=== PATIENT | female | born 1950 | race Caucasian/White ===

== ENCOUNTER 2018-06-10 07:59 | Inpatient (IN) | payer OTHER ==
[2018-06-10] MEDS ORDERED: METHYLPREDNISOLONE 125 MG INJ ONE (08:30)
[2018-06-10] MEDS ORDERED: ACETAMINOPHEN 500 MG TAB ONE (08:30)
[2018-06-10] MEDS ORDERED: Levofloxacin 750mg IV 750 MG/150 ML BAG IV ONE (08:30)
[2018-06-10] MEDS ORDERED: ALBUTEROL 2.5 MG/3 ML NEB SOL ONE (08:30)
[2018-06-10] MEDS ORDERED: NA CHLORIDE 0.9% 1,000 ML ONE (08:30)
[2018-06-10 08:58] LABS: Absolute Lymphocytes (CBC) 0.4 K/uL (0.7-4.9); Absolute Monocytes 0.6 K/uL (0.1-1.3); Absolute Neutrophil 5.1 K/uL (1.8-8.0); Basophils % 0.3 % (0-1.3); Eosinophils % 0.8 % (0-4.4); Hematocrit 42.9 % (36.0-45.0); Lymphocytes % 5.7 % (15.3-44.8); RBC Red Blood Cell Count 4.41 M/uL (3.86-4.86)
[2018-06-10 09:02] LABS: Protime INR 1.05
[2018-06-10 09:15] LABS: ALT/SGPT 32 U/L (12-78); AST/SGOT 42 U/L (15-37); Albumin 3.5 g/dL (3.4-5.0); Alkaline Phosphatase 95 U/L (45-117); BUN Blood Urea Nitrogen 7 mg/dL (7-18); Bicarbonate 26 mmol/L (21-32); Bilirubin Direct 0.3 mg/dL (0-0.2); Bilirubin Total 0.7 mg/dL (0.2-1.0); Creatine Phosphokinase 876 U/L (26-192); Glucose Level 108 mg/dL (74-106); Lipase 60 U/L (73-393); Potassium 3.9 mmol/L (3.5-5.1); Protein, Total 6.9 g/dL (6.4-8.2); Sodium Level 135 mmol/L (136-145); Troponin (Emerg Dept Use Only) < 0.02 ng/mL (0.0-0.045)
--- NOTE | 2018-06-10 09:29 | RAD REPORT ---
EXAM DESCRIPTION: RAD - Chest Single View - 06/10/2018 8:45 am CLINICAL HISTORY: Shortness of breath, productive cough COMPARISON: October 2016February 2012 TECHNIQUE: AP portable chest image was obtained 0831 hours . FINDINGS: No focal mass or consolidation. Emphysema changes are present in each upper lung field. In terstitial markings are prominent in the lower lung campbell, worse on the right. Heart and vasculature are normal. No measurable pleural effusion and no pneumothorax. No acute bony abnormality seen. No a cute aortic findings suspected. IMPRESSION: Suspected interstitial pneumonia lower right lung field and possibly at the lateral left base. No dense mass or consolidation. Heart and vascular findings do not support CHF or volume overload. Emphysematous changes in the upper lung campbell. Correlation is needed with any COPD history.
--- NOTE | 2018-06-10 09:43 | EDPHYS ---
Physician Documentation [facility] Name: Lynda Covington Age: 68 yrs Sex: Female : 1950 Arrival Date: 06/10/2018 Time: 08:02 Bed 8 Private MD: Phoenix Ayala ED Physician Josh Redding HPI: 06/10 08:18 This 68 yrs old Female presents to ER via Wheelchair with complaints of jr8 Breathing Difficulty. 08:18 The patient has shortness of breath at rest. Onset: The symptoms/episode began/occurred jr8 gradually, 4 day(s) ago, and became worse and became persistent. Duration: The symptoms are continuous. The patient's shortness of breath is aggravated by coughing, is alleviated by nothing. Associated signs and symptoms: Pertinent positives: fever. Severity of symptoms: At their worst the symptoms were moderate in the emergency department the symptoms are unchanged. The patient has not experienced similar symptoms in the past. The patient has been recently seen by a physician:. saw PCP the other day and had flu swab done which was negative. Was given Tamiflu. Now running fever and having worsening of cough and shortness of breath . Historical: - Allergies: 08:08 Phenergan; aa5 - PMHx: 08:08 Diverticulitis; Hypertension; Hypothyroidism; Pancreatitis; aa5 - PSHx: 08:08 Cholecystectomy; Hysterectomy; aa5 - Immunization history:: Flu vaccine is up to date. - Social history:: Smoking status: Patient/guardian denies using tobacco. - Ebola Screening: : No symptoms or risks identified at this time. ROS: 08:18 Eyes: Negative for injury, pain, redness, and discharge, ENT: Negative for injury, jr8 pain, and discharge, Neck: Negative for injury, pain, and swelling, Cardiovascular: Negative for chest pain, palpitations, and edema, Abdomen/GI: Negative for abdominal pain, nausea, vomiting, diarrhea, and constipation, Back: Negative for injury and pain, MS/Extremity: Negative for injury and deformity, Skin: Negative for injury, rash, and discoloration, Neuro: Negative for headache, weakness, numbness, tingling, and seizure. 08:18 Constitutional: Positive for fever. 08:18 Respiratory: Positive for cough, dyspnea on exertion, shortness of breath, wheezing. Exam: 08:18 Head/Face: Normocephalic, atraumatic. Eyes: Pupils equal round and reactive to light, jr8 extra-ocular motions intact. Lids and lashes normal. Conjunctiva and sclera are non-icteric and not injected. Cornea within normal limits. Periorbital areas with no swelling, redness, or edema. ENT: Nares patent. No nasal discharge, no septal abnormalities noted. Tympanic membranes are normal and external auditory canals are clear. Oropharynx with no redness, swelling, or masses, exudates, or evidence of obstruction, uvula midline. Mucous membranes moist. Neck: Trachea midline, no thyromegaly or masses palpated, and no cervical lymphadenopathy. Supple, full range of motion without nuchal rigidity, or vertebral point tenderness. No Meningismus. Cardiovascular: Regular rate and rhythm with a normal S1 and S2. No gallops, murmurs, or rubs. Normal PMI, no JVD. No pulse deficits. Abdomen/GI: Soft, non-tender, with normal bowel sounds. No distension or tympany. No guarding or rebound. No evidence of tenderness throughout. Back: No spinal tenderness. No costovertebral tenderness. Full range of motion. Skin: Warm, dry with normal turgor. Normal color with no rashes, no lesions, and no evidence of cellulitis. MS/ Extremity: Pulses equal, no cyanosis. Neurovascular intact. Full, normal range of motion. Neuro: Awake and alert, GCS 15, oriented to person, place, time, and situation. Cranial nerves II-XII grossly intact. Motor strength 5/5 in all extremities. Sensory grossly intact. Cerebellar exam normal. Normal gait. 08:18 Respiratory: mild respiratory distress is noted, Respirations: labored breathing, tachypnea, Breath sounds: decreased breath sounds, that are moderate, are heard in the left posterior lower lobe, right posterior middle lobe and right posterior lower lobe, wheezing: expiratory that is moderate, is heard diffusely. Vital Signs: 08:08 BP 134 / 91; Pulse 93; Resp 30; Temp 100.2(O); Pulse Ox 91% on R/A; Weight 86.64 kg aa5 (R); Height 5 ft. 3 in. (160.02 cm) (R); 09:00 BP 134 / 86; Pulse 94; Resp 28; Pulse Ox 97% on 2 lpm NC; ph 10:00 BP 133 / 83; Pulse 93; Resp 28; Pulse Ox 98% on 2 lpm NC; ph 11:02 BP 141 / 80; Pulse 95; Resp 26; Pulse Ox 98% on 2 lpm NC; ph 08:08 Body Mass Index 33.83 (86.64 kg, 160.02 cm) aa5 MDM: 08:10 Patient medically screened. [facility] 09:41 Data reviewed: vital signs, nurses notes, lab test result(s), EKG, radiologic studies, [facility] plain films. Data interpreted: Pulse oximetry: on room air is 91 %. Interpretation: borderline. Counseling: I had a detailed discussion with the patient and/or guardian regarding: the historical points, exam findings, and any diagnostic results supporting the discharge/admit diagnosis, lab results, radiology results, the need for further work-up and treatment in the hospital. 06/10 08:11 Order name: Basic Metabolic Panel; Complete Time: 06/10 08:11 Order name: Blood Culture Adult (2) [facility] 06/10 08:11 Order name: CBC with Diff; Complete Time: 06/10 08:11 Order name: Ckmb; Complete Time: 06/10 08:11 Order name: CPK; Complete Time: 06/10 08:11 Order name: Lactate; Complete Time: 06/10 08:11 Order name: LFT's; Complete Time: 06/10 08:11 Order name: Lipase; Complete Time: 06/10 08:11 Order name: Procalcitonin; Complete Time: 06/10 08:11 Order name: Protime (+inr); Complete Time: 06/10 08:11 Order name: Ptt, Activated; Complete Time: 06/10 08:11 Order name: Troponin (emerg Dept Use Only); Complete Time: 06/10 08:11 Order name: Urine Microscopic Only [facility] 06/10 08:12 Order name: Influenza Screen (a \T\ B); Complete Time: 06/10 08:11 Order name: Chest Single View XRAY; Complete Time: 09:29 06/10 08:11 Order name: Accucheck; Complete Time: 08:33 06/10 08:11 Order name: Cardiac monitoring; Complete Time: 08:06/10 08:11 Order name: EKG - Nurse/Tech; Complete Time: 08:33 06/10 08:11 Order name: IV Saline Lock - Large Bore; Complete Time: 08:56 06/10 08:11 Order name: Labs collected and sent; Complete Time: 08:56 06/10 08:11 Order name: O2 Per Protocol; Complete Time: 08:06/10 08:11 Order name: O2 Sat Monitoring; Complete Time: 08: Administered Medications: 08:35 Drug: Acetaminophen 1000 mg Route: PO; ph 08:35 Drug: Albuterol 2.5 mg Route: Inhalation; ph 08:40 Drug: SOLU-Medrol 125 mg Route: IVP; Site: left antecubital; ph 10:16 Follow up: Response: No adverse reaction ph 08:45 Drug: NS 0.9% (30 ml/kg) 30 ml/kg Route: IV; Rate: bolus; Site: left antecubital; ph 10:15 Follow up: Response: No adverse reaction; IV Status: Completed infusion; IV Intake: ph 1000ml 08:56 Drug: Albuterol 2.5 mg Route: Inhalation; ph 09:15 Drug: Albuterol 2.5 mg Route: Inhalation; ph 09:54 Drug: LevaQUIN 750 mg Volume: 150 ml; Route: IVPB; Infused Over: 90 mins; Site: left ph antecubital; 11:17 Follow up: Response: No adverse reaction; IV Status: Completed infusion ph 11:17 Drug: TORadol 30 mg Route: IVP; Site: left antecubital; ph 12:38 Follow up: Response: No adverse reaction sg 12:00 Drug: Tussionex Pennkinetic ER 5 ml Route: PO; ph 12:30 Follow up: Response: No adverse reaction; Marked relief of symptoms ph Disposition: 06/10/18 09:42 Hospitalization ordered by Brooke Stanford for Inpatient Admission. Preliminary diagnosis are Pneumonia due to other specified bacteria, Chronic obstructive pulmonary disease, unspecified. - Bed requested for Telemetry/MedSurg (Inpatient). - Status is Inpatient Admission. ph - Condition is Fair. - Problem is new. - Symptoms have improved. UTI on Admission? No Addendum: 06/18/2018 11:23 Co-signature as Attending Physician, Josh Redding MD I agree with the assessment and c costa plan of care. Signatures: Dispatcher [employer] Jessica Coughlin RN RN dw Anderson, Corey, MD MD cha Calderon, Audri, RN RN aa5 Talon Calderon PA PA jr8 Huyen Pedroza RN RN [facility], Jorge HARRINGTON sg Corrections: (The following items were deleted from the chart) 06/10 09:42 09:42 Hospitalization Ordered by Sandy Ayala MD for Inpatient Admission. Preliminary jr8 diagnosis is Pneumonia due to other specified bacteria. Bed requested for Telemetry/MedSurg (Inpatient). Status is Inpatient Admission. Condition is Fair. Problem is new. Symptoms have improved. UTI on Admission? No. jr8 09:44 09:42 06/10/2018 09:42 Hospitalization Ordered by Sandy Ayala MD for Inpatient jr8 Admission. Preliminary diagnosis is Pneumonia due to other specified bacteria; Chronic obstructive pulmonary disease, unspecified. Bed requested for Telemetry/MedSurg (Inpatient). Status is Inpatient Admission. Condition is Fair. Problem is new. Symptoms have improved. UTI on Admission? No. jr8 11:32 09:44 06/10/2018 09:42 Hospitalization Ordered by Brooke Stanford MD for Inpatient dw Admission. Preliminary diagnosis is Pneumonia due to other specified bacteria; Chronic obstructive pulmonary disease, unspecified. Bed requested for Telemetry/MedSurg (Inpatient). Status is Inpatient Admission. Condition is Fair. Problem is new. Symptoms have improved. UTI on Admission? No. jr8 13:07 11:32 06/10/2018 09:42 Hospitalization Ordered by Brooke Stanford MD for Inpatient ph Admission. Preliminary diagnosis is Pneumonia due to other specified bacteria; Chronic obstructive pulmonary disease, unspecified. Bed requested for Telemetry/MedSurg (Inpatient). Status is Inpatient Admission. Condition is Fair. Problem is new. Symptoms have improved. UTI on Admission? No. dw
--- NOTE | 2018-06-10 09:43 | ER ---
Nurse's Notes [facility] Name: Lynda Covington Age: 68 yrs Sex: Female : 1950 Arrival Date: 06/10/2018 Time: 08:02 Bed 8 Private MD: Phoenix Ayala Diagnosis: Pneumonia due to other specified bacteria;Chronic obstructive pulmonary disease, unspecified Presentation: 06/10 08:05 Presenting complaint: Patient states: SOB and productive cough. Pt reports being seen aa5 by doctor on Sunday and prescribed Tamiflu but Flu swab was negative. 08:05 Transition of care: patient was not received from another setting of care. Onset of aa5 symptoms was May 2018. Risk Assessment: Do you want to hurt yourself or someone else? Patient reports no desire to harm self or others. Care prior to arrival: None. 08:05 Method Of Arrival: Wheelchair aa5 08:05 Acuity: SILVINO 3 aa5 08:05 Initial Sepsis Screen: Does the patient meet any 2 criteria? RR > 20 per min. Does the ph patient have a suspected source of infection? Yes: Productive cough/pneumonia. Historical: - Allergies: 08:08 Phenergan; aa5 - PMHx: 08:08 Diverticulitis; Hypertension; Hypothyroidism; Pancreatitis; aa5 - PSHx: 08:08 Cholecystectomy; Hysterectomy; aa5 - Immunization history:: Flu vaccine is up to date. - Social history:: Smoking status: Patient/guardian denies using tobacco. - Ebola Screening: : No symptoms or risks identified at this time. Screenin:00 Abuse screen: Denies threats or abuse. Denies injuries from another. Nutritional ph screening: No deficits noted. Tuberculosis screening: No symptoms or risk factors identified. Fall Risk None identified. Assessment: 08:15 General: Appears in no apparent distress. uncomfortable, well groomed, Behavior is ph calm, cooperative, appropriate for age, Reports chills for. Pain: Denies pain. Cardiovascular: Capillary refill < 3 seconds in bilateral fingers Patient's skin is warm and dry. Rhythm is sinus rhythm. Respiratory: Reports shortness of breath at rest cough that is productive, pain with cough Airway is patent Respiratory effort is labored, Respiratory pattern is tachypnea Breath sounds are coarse bilaterally. GI: No signs and/or symptoms were reported involving the gastrointestinal system. Patient currently denies abdominal pain, diarrhea, nausea, vomiting. EENT: Reports nasal congestion. Derm: Skin is intact, is healthy with good turgor, Skin is pink, warm \\T\\ dry. Musculoskeletal: Circulation, motion, and sensation intact. Range of motion: intact in all extremities. 09:30 Reassessment: Patient appears in no apparent distress at this time. Patient and/or ph family updated on plan of care and expected duration. Pain level reassessed. Patient is alert, oriented x 3, equal unlabored respirations, skin warm/dry/pink. Pt resting quietly, remains tachypneic at 26 bpm but reports that SOB has improved, states, " It only bothers me if I have a coughing fit." family at bedside VSS. 10:45 Reassessment: Patient appears in no apparent distress at this time. Patient and/or ph family updated on plan of care and expected duration. Pain level reassessed. Patient is alert, oriented x 3, equal unlabored respirations, skin warm/dry/pink. Pt c/o headache and requesting medication, ERP notified, see MAR. 12:30 Reassessment: Patient appears in no apparent distress at this time. Patient and/or ph family updated on plan of care and expected duration. Pain level reassessed. Patient is alert, oriented x 3, equal unlabored respirations, skin warm/dry/pink. Vital Signs: 08:08 BP 134 / 91; Pulse 93; Resp 30; Temp 100.2(O); Pulse Ox 91% on R/A; Weight 86.64 kg aa5 (R); Height 5 ft. 3 in. (160.02 cm) (R); 09:00 BP 134 / 86; Pulse 94; Resp 28; Pulse Ox 97% on 2 lpm NC; ph 10:00 BP 133 / 83; Pulse 93; Resp 28; Pulse Ox 98% on 2 lpm NC; ph 11:02 BP 141 / 80; Pulse 95; Resp 26; Pulse Ox 98% on 2 lpm NC; ph 08:08 Body Mass Index 33.83 (86.64 kg, 160.02 cm) aa5 ED Course: 08:00 Patient has correct armband on for positive identification. Placed in gown. Bed in low ph position. Call light in reach. Side rails up X2. boom crane operator on. Pulse ox on. NIBP on. 08:02 Patient arrived in ED. sb2 08:02 Phoenix Ayala DO is Private Physician. sb2 08:08 Arm band placed on. aa5 08:09 Triage completed. aa5 08:10 Talon Calderon PA is PHCP. jr8 08:10 Josh Redding MD is Attending Physician. jr8 08:15 Huyen Pedroza, RN is Primary Nurse. ph 08:26 EKG done, by cath lab radiology technician. reviewed by Talon GONZALEZ. at1 08:33 Missed attempt(s): 22 gauge in right antecubital area. jb1 08:33 Flu and/or RSV swab sent to lab. jb1 08:40 Inserted saline lock: 22 gauge in left antecubital area, using aseptic technique. Blood ph collected. 08:43 X-ray completed. Portable x-ray completed in exam room. Patient tolerated procedure bb2 well. 08:44 Chest Single View XRAY In Process Unspecified. EDMS 09:42 Sandy Ayala MD is Hospitalizing Provider. jr8 09:44 Brooke Stanford MD is Hospitalizing Provider. jr8 12:00 No provider procedures requiring assistance completed. Patient admitted, IV remains in ph place. Administered Medications: 08:35 Drug: Acetaminophen 1000 mg Route: PO; ph 08:35 Drug: Albuterol 2.5 mg Route: Inhalation; ph 08:40 Drug: SOLU-Medrol 125 mg Route: IVP; Site: left antecubital; ph 10:16 Follow up: Response: No adverse reaction ph 08:45 Drug: NS 0.9% (30 ml/kg) 30 ml/kg Route: IV; Rate: bolus; Site: left antecubital; ph 10:15 Follow up: Response: No adverse reaction; IV Status: Completed infusion; IV Intake: ph 1000ml 08:56 Drug: Albuterol 2.5 mg Route: Inhalation; ph 09:15 Drug: Albuterol 2.5 mg Route: Inhalation; ph 09:54 Drug: LevaQUIN 750 mg Volume: 150 ml; Route: IVPB; Infused Over: 90 mins; Site: left ph antecubital; 11:17 Follow up: Response: No adverse reaction; IV Status: Completed infusion ph 11:17 Drug: TORadol 30 mg Route: IVP; Site: left antecubital; ph 12:38 Follow up: Response: No adverse reaction sg 12:00 Drug: Tussionex Pennkinetic ER 5 ml Route: PO; ph 12:30 Follow up: Response: No adverse reaction; Marked relief of symptoms ph Intake: 10:15 IV: 1000ml; Total: 1000ml. ph Outcome: 09:42 Decision to Hospitalize by Provider. jr8 13:07 Patient left the ED. ph 13:07 Admitted to Tele accompanied by tech, family with patient, with oxygen, with chart. ph 13:07 Condition: stable 13:07 Instructed on the need for admit. Signatures: Dispatcher [employer] EDPavan Barcenas jb1 Jorge Ruiz RN RN sg Alcira Yun RN RN aa5 Talon Calderon PA PA jr8 Ale Morales, composition weatherboard applier EKG Tat1 Huyen Pedroza RN RN [facility] bb2 Enid Kurtz sb2 Corrections: (The following items were deleted from the chart) 10:15 08:45 NS 0.9% (30 ml/kg) 30 ml/kg IV at bolus in left antecubital ph ph 10:15 10:14 Response: No adverse reaction; IV Status: Completed infusion ph ph
[2018-06-10] MEDS ORDERED: KETOROLAC 30 MG/ML INJ ONE (11:23)
[2018-06-10] MEDS ORDERED: HYDROCODONE/CHLORPHEN 5 ML/OSYR ONE (12:10)
[2018-06-10 13:11] VITALS: BMI 33.8
[2018-06-10] MEDS ORDERED: POTASSIUM CL SA 10 MEQ TAB PO ONE (13:38)
--- NOTE | 2018-06-10 14:46 | EKG ---
Test Date: 2018-06-10 Test Time: 08:17:31 Window Cutter: FRANK MEASUREMENT RESULTS: Intervals: Rate: 94 [place]: 138 QRSD: 72 QT: 366 QTc: 457 Mason: P: 73 [place]: 138 QRS: 66 T: 31 INTERPRETIVE STATEMENTS: Normal sinus rhythm Normal ECG Compared to ECG 03/03/2016 10:20:20 ST (T wave) deviation no longer present Electronically Signed On 06-10-18 14:44:18 SHOE SINGER by Kushal Koch
--- NOTE | 2018-06-10 17:11 | P.HP ---
Patient History Date of Service: 06/10/18 Primary Care Provider: Dr. Dexter Ayala Reason for admission: Respiratory Distress History of Present Illness: This is a 68-year-old female with history of hypertension, COPD admitted for acute gastroenteritis. Per patient, she went to her primary care physician on Sunday, flu test was done which was negative but she was still given Tamiflu to take. Since then, her symptoms of cough, weakness, body aches and low-grade fever have not resolved and now she has started having shortness of breath. This morning, she woke up and she could not catch her breath, felt like she could not breathe and she came into the ER. In the ED, she received IV Levaquin 750 mg, Solu-Medrol, nebulizer treatment, 1 liter IV fluid and 30 mg of Toradol to help with her symptoms. Her propranolol was normal, lactic acid was normal and she was still flu negative. At the time of my exam, she was hemodynamically stable, alert oriented x3, in no acute distress. Allergies No Known Allergies Allergy (Verified 03/03/16 20:34) Home Medications: Atenolol 50 mg PO DAILY 06/10/18 Atorvastatin Calcium 10 mg PO DAILY 06/10/18 Budesonide/Formoterol Fumarate [Symbicort 160-4.5 Mcg Inhaler] 1 puff IH DAILY 06/10/18 Levothyroxine [Synthroid] 100 mcg PO DAILY 06/10/18 Losartan Potassium 100 mg PO DAILY 06/10/18 Omeprazole [Prilosec] 40 mg PO DAILY 06/10/18 - Past Medical/Surgical History Diabetic: No -: glaucoma -: HTN -: Hypothyroid -: hysterectomy -: cholecystectomy -: tonsilectomy - Family History Father -: Hypertension - Social History Smoking Status: Former smoker Alcohol use: Yes CD- Drugs: No Caffeine use: Yes Place of Residence: Home Review of Systems 10-point ROS is otherwise unremarkable Physical Examination - Vital Signs Temperature: 97.0 F Blood Pressure: 121/73 Pulse: 73 Respirations: 20 Pulse Ox (%): 95 - Physical Exam General: Alert, In no apparent distress, Oriented x3 HEENT: Atraumatic, PERRLA, Mucous membr. moist/pink, EOMI, Sclerae nonicteric Neck: Supple, 2+ carotid pulse no bruit, No LAD, Without JVD or thyroid abnormality Respiratory: Dull, Expiratory wheezes, Inspiratory wheezes Cardiovascular: Regular rate/rhythm, Normal S1 S2 Gastrointestinal: Normal bowel sounds, No tenderness Musculoskeletal: No tenderness Integumentary: No rashes Neurological: Normal gait, Normal speech, Normal strength at 5/5 x4 extr, Normal tone, Normal affect Lymphatics: No axilla or inguinal lymphadenopathy - Studies Laboratory Data (last 24 hrs) 06/10/18 08:40: PT 12.4, INR 1.05, APTT 35.4 06/10/18 08:40: WBC 6.2, Hgb 14.7, Hct 42.9, Plt Count 161 06/10/18 08:40: Sodium 135 L, Potassium 3.9, BUN 7, Creatinine 0.67, Glucose 108 H, Total Bilirubin 0.7, AST 42 H, ALT 32, Alkaline Phosphatase 95, Lipase 60 L Microbiology Data (last 24 hrs): 06/10/18 08:30 Nasopharnyx Influenza Type A Antigen Screen - Final 06/10/18 08:30 Nasopharnyx Influenza Type B Antigen Screen - Final Assessment and Plan - Problems (Diagnosis) (1) Acute respiratory distress Onset Date: 06/10/18 Current Visit: Yes Status: Acute (2) COPD exacerbation Current Visit: Yes Status: Acute (3) Right lower lobe pneumonia Current Visit: Yes Status: Acute Qualifiers: Pneumonia type: due to unspecified organism Qualified Code(s): J18.1 - Lobar pneumonia, unspecified organism (4) Cough Current Visit: No Status: Acute (5) Hypertension Current Visit: No Status: Chronic Qualifiers: Hypertension type: essential hypertension Qualified Code(s): I10 - Essential (primary) hypertension (6) Hypothyroidism Current Visit: No Status: Chronic Qualifiers: - Plan This is a 68-year-old female with: Acute respiratory distress (Acute 06/10/18) R06.03 COPD exacerbation (Acute) J44.1 Likely secondary to pneumonia along with COPD exacerbation Improving. DuoNebs ordered. Oxygen per protocol IV antibiotics: Levaquin IV Solu-Medrol 60 mg q. 6 hr Right lower lobe pneumonia (Acute) J18.1 IV antibiotics: Levaquin Cough (Acute) R05 Tessalon Perles ordered for antitussive effects COPD (chronic obstructive pulmonary disease) (Chronic) J44.9 Treat as noted above Hypertension (Chronic) I10 Stable, will restart home medications. Hypothyroidism (Chronic) E03.9 Stable, will restart home medications. DVT prophylaxis: Lovenox GI prophylaxis: Not needed Diet: Heart healthy Disposition: Admit to floor with tele. Pending symptomatic improvement - Advance Directives Does patient have a Living Will: No Does patient have a Durable POA for Healthcare: No Physician Review: Patient Assessed, Agree with Above Assessment and Plan Time Spent Managing Pts Care (In Minutes): 55
[2018-06-10] MEDS: METHYLPREDNISOLONE 125 MG INJ IV SCH ×2 (18:00→23:30)
[2018-06-10] MEDS ORDERED: Levofloxacin500mg IV 500 MG/100 ML BAG IV SCH (18:00)
[2018-06-10] MEDS: IPRATROPIUM BROM 0.5MG/2.5ML NEB SCH (20:00)
[2018-06-10] MEDS: ALBUTEROL 2.5 MG/3 ML NEB SOL NEB SCH (20:00)
[2018-06-10] MEDS: ACETAMINOPHEN 500 MG TAB PO PRN (21:30)
[2018-06-10] MEDS: BENZONATATE 100 MG CAP PO PRN (22:48)
[2018-06-10 22:58] LABS: Urine Appearance CLEAR; Urine Bilirubin NEGATIVE (NEG); Urine Blood TRACE (NEG); Urine Color YELLOW; Urine Glucose NEGATIVE (NEG); Urine Protein NEGATIVE (NEG); Urine Specific Gravity 1.015 (1.005-1.030); Urine Urobilinogen 0.2 mg/dL (0.2-1.0)
[2018-06-10 22:59] LABS: Urine Microscopic Reflex ORDER UMIC
[2018-06-11 00:21] LABS: Urine Bacteria <20 /HPF (<20); Urine RBC <5 /HPF (NONE SEEN)
[2018-06-11 00:22] LABS: Urine Culture Reflex Order NOT NEEDED
[2018-06-11] MEDS: guaiFENesin 100 MG/5 ML UCUP PO PRN ×2 (00:46→05:41)
[2018-06-11] MEDS: ALBUTEROL 2.5 MG/3 ML NEB SOL NEB SCH ×6 (04:00→19:45)
[2018-06-11] MEDS: IPRATROPIUM BROM 0.5MG/2.5ML NEB SCH ×6 (04:00→19:45)
[2018-06-11 05:14] LABS: Absolute Lymphocytes (CBC) 0.3 K/uL (0.7-4.9); Absolute Monocytes 0.2 K/uL (0.1-1.3); Absolute Neutrophil 3.6 K/uL (1.8-8.0); Hematocrit 39.9 % (36.0-45.0); Lymphocytes % 6.6 % (15.3-44.8); MPV 10.1 fL (7.6-11.3); Monocytes % 5.4 % (3.3-12.3); RBC Red Blood Cell Count 4.01 M/uL (3.86-4.86)
[2018-06-11 05:31] LABS: ALT/SGPT 41 U/L (12-78); AST/SGOT 62 U/L (15-37); Alkaline Phosphatase 84 U/L (45-117); BUN Blood Urea Nitrogen 10 mg/dL (7-18); Bicarbonate 28 mmol/L (21-32); Bilirubin Total 0.4 mg/dL (0.2-1.0); Glucose Level 135 mg/dL (74-106); Potassium 4.1 mmol/L (3.5-5.1); Sodium Level 137 mmol/L (136-145)
[2018-06-11 05:32] LABS: Albumin 3.3 g/dL (3.4-5.0); Magnesium 2.2 mg/dL (1.8-2.4); Phosphorus 2.9 mg/dL (2.5-4.9); Protein, Total 6.4 g/dL (6.4-8.2)
[2018-06-11] MEDS: LEVOTHYROXINE SOD 0.1 MG TAB PO SCH (05:36)
[2018-06-11] MEDS: PANTOPRAZOLE 40MG TABLET PO SCH (05:37)
[2018-06-11] MEDS: METHYLPREDNISOLONE 125 MG INJ IV SCH ×3 (05:38→17:02)
[2018-06-11 05:56] LABS: Blood Morphology Comment NOT SEEN (NOT SEEN); Platelet Estimate ADEQ
--- NOTE | 2018-06-11 07:31 | RAD REPORT ---
EXAM DESCRIPTION: Maddie Single View06/11/2018 6:59 am CLINICAL HISTORY: Cough COMPARISON: June 10 FINDINGS: Mild prominence of the interstitium within the lung bases unchanged. The heart is normal s ize IMPRESSION: No change since the prior exam
[2018-06-11] MEDS: ATORVASTATIN 10 MG TAB PO SCH (09:00)
[2018-06-11] MEDS: ENOXAPARIN 40 MG/0.4 ML SQ SCH (09:04)
[2018-06-11] MEDS: ATENOLOL 50 MG TAB PO SCH (09:04)
[2018-06-11] MEDS: LOSARTAN POTASSIUM 50 MG TABLET PO SCH (09:05)
[2018-06-11] MEDS: ACETAMINOPHEN 500 MG TAB PO PRN (09:09)
[2018-06-11] MEDS: GUAIFENESIN/CODEINE 5ML UCUP PO PRN ×2 (13:44→20:28)
[2018-06-11] MEDS: Levofloxacin500mg IV 500 MG/100 ML BAG IV SCH (13:45)
--- NOTE | 2018-06-11 14:05 | PN ---
Subjective: The patient currently lying in bed. She is not feeling well. She continued to be short of breath. She has no chest pain. No abdominal pain. Appetite is poor. Overnight, she had no fev er. Review of Systems: Otherwise as below. Objective: Vital Signs: Blood pressure , respiratory rate 18, pulse 106, temperature 97.1 . General: The patient is alert and oriented x3. Does not look in any distress. HEENT: Atraumatic and normocephalic. PERRLA. Oral mucosa is moist. Neck: Supple. No JVD. No bruits. Chest: Clear to auscultation. No expiratory wheezing. Heart: Regular rate and rhythm. S1 and S2 normal. No murmur or gallop. She is tachy. Abdomen: Soft, nontender. No masses. No hepatosplenomegaly. Positive bowel sounds. Extremities: No clubbing, cyanosis, or edema. No calf tenderness. Neurologic: Grossly intact. Laboratory Data: Today showed white blood cells down to 4.1, hemoglobin normal, platelets 142. Chem istry within normal except for glucose 135, ALT of 62. Cardiac enzymes were negative. BMPs pending today. Chest x-ray repeated showed stable from yesterday. Assessment And Plan: 1.Acute expiratory failure secondary to pneumonia. Continue Levaquin, IV antibiotics, Solu-Medrol a s well as DuoNeb. The patient is not feeling much better. We will keep the patient for 1 more day. 2.Right lower lobe pneumonia. Continue IV Levaquin. 3.Cough. The patient want cough suppressor, we will order Robitussin with codeine. 4.Hypertension, not well controlled. We will start her on Norvasc 5 mg on top of her losartan. 5.Deep vein thrombosis prophylaxis with Lovenox. 6.Hypothyroidism. Continue with Synthroid. MT/MODL Voice ID: [id number] Report ID: [id number]
[2018-06-11] MEDS: AMLODIPINE 5 MG TAB PO SCH (14:27)
[2018-06-11] MEDS: BENZONATATE 100 MG CAP PO PRN (15:03)
[2018-06-11] MEDS: ONDANSETRON 4 MG/2 ML VIAL IV PRN (20:20)
[2018-06-12] MEDS: METHYLPREDNISOLONE 125 MG INJ IV SCH ×4 (00:22→16:44)
[2018-06-12] MEDS: GUAIFENESIN/CODEINE 5ML UCUP PO PRN ×3 (02:35→16:44)
[2018-06-12] MEDS: ONDANSETRON 4 MG/2 ML VIAL IV PRN ×4 (02:35→21:13)
[2018-06-12] MEDS: BENZONATATE 100 MG CAP PO PRN ×2 (04:41→15:46)
[2018-06-12] MEDS: ALBUTEROL 2.5 MG/3 ML NEB SOL NEB SCH ×6 (04:50→19:52)
[2018-06-12] MEDS: IPRATROPIUM BROM 0.5MG/2.5ML NEB SCH ×6 (04:50→19:52)
[2018-06-12] MEDS: PANTOPRAZOLE 40MG TABLET PO SCH (05:20)
[2018-06-12] MEDS: LEVOTHYROXINE SOD 0.1 MG TAB PO SCH (05:21)
[2018-06-12] MEDS: LOSARTAN POTASSIUM 50 MG TABLET PO SCH (09:00)
[2018-06-12] MEDS: ENOXAPARIN 40 MG/0.4 ML SQ SCH (09:00)
[2018-06-12] MEDS: ATENOLOL 50 MG TAB PO SCH (09:00)
[2018-06-12] MEDS: ATORVASTATIN 10 MG TAB PO SCH (09:01)
[2018-06-12] MEDS: AMLODIPINE 5 MG TAB PO SCH (09:20)
[2018-06-12 09:45] LABS: Absolute Lymphocytes (CBC) 0.3 K/uL (0.7-4.9); Absolute Monocytes 0.5 K/uL (0.1-1.3); Absolute Neutrophil 7.5 K/uL (1.8-8.0); Basophils % 0.2 % (0-1.3); Hematocrit 42.9 % (36.0-45.0); Lymphocytes % 3.6 % (15.3-44.8); MPV 9.8 fL (7.6-11.3); Monocytes % 6.3 % (3.3-12.3); RBC Red Blood Cell Count 4.32 M/uL (3.86-4.86)
[2018-06-12 10:03] LABS: Albumin 3.8 g/dL (3.4-5.0); Bilirubin Total 0.5 mg/dL (0.2-1.0); Potassium 4.7 mmol/L (3.5-5.1); Protein, Total 7.2 g/dL (6.4-8.2)
[2018-06-12 10:54] LABS: Blood Morphology Comment NOT SEEN (NOT SEEN); Platelet Estimate ADEQ
--- NOTE | 2018-06-12 13:20 | PN ---
Subjective: Currently, patient is sitting in the chair. She continued to be short of breath. Jane mally to have significant cough, is much better since we started Robitussin with codeine. She has no fever, no chills overnight. She has been fatigued and weak. Poor energy. Review of Systems: Otherwise negative. Physical Examination: Vital Signs: Blood pressure is 141/75, respiratory rate 18, pulse 87, temperature 97.4. She is satu rating 95% on 2 L nasal cannula. General: She is alert and oriented x3. Looks in mild distress. HEENT: Atraumatic, normocephalic. PERRLA mucosa is moist. Neck: Supple. No JVD. Chest: Clear to auscultation with expiratory wheezing and bibasilar crackles. Heart: Regular rate and rhythm. S2 normal. No gallop. Abdomen: Soft, nontender. No masses. No hepatosplenomegaly. Positive bowel sounds. Extremities: No clubbing or cyanosis or edema. No calf tenderness. Neurologic: Grossly intact. Laboratory Data: This morning all pending, but BNP from yesterday was 594. No chest x-ray today. Assessment And Plan: 1.Respiratory failure secondary to pneumonia? possible volume overload. We will continue IV antibio tic with Levaquin. The patient already on Solu-Medrol and DuoNeb, still not feeling much better so g iven elevated BNP, I will proceed with echocardiogram to evaluate her cardiac function and add Lasix 40 IV a day and see if that will improve symptoms. 2.Right lower lobe pneumonia. We will continue IV Levaquin. So far microbiology was negative inclu ding sputum culture with normal jose. Blood culture preliminary negative. 3.Cough is little better with Robitussin with codeine. Continue increase the frequency to every 4 h ours. 4.Hypertension, well controlled today since we added Norvasc yesterday. 5.Deep vein thrombosis prophylaxis on Lovenox. 6.Hypothyroidism, continue with Synthroid. 7.Physical therapy evaluation for discharge planning, hopefully in a.m. if patient is feeling better and labs look good. CHANO/SONJA Voice ID: [id number] Report ID: [id number]
[2018-06-12] MEDS: Levofloxacin500mg IV 500 MG/100 ML BAG IV SCH (13:21)
--- NOTE | 2018-06-12 15:10 | ECHO ---
HEIGHT: 5 ft 3 in WEIGHT: 191 lb 0 oz DATE OF STUDY: 06/12/[address]: Talib Tamayo MD 2-DIMENSIONAL: YES M.MODE: YES DOPPLER: YES COLOR FLOW: YES TDS: YES PORTABLE: DEFINITY: BUBBLE STUDY: DIAGNOSIS: CONGESTIVE HEART FAILURE CARDIAC HISTORY: CATHERIZATION: NO SURGERY: NO PROSTHETIC VALVE: NO PACEMAKER: NO MEASUREMENTS (cm) DIASTOLIC (NORMALS) SYSTOLIC (NORMALS) IVSd 1.2 (0.6-1.2) LA Diam 3.7 (1.9-4.0) LVEF 59% LVIDd 3.2 (3.5-5.7) LVIDs 2.2 (2.0-3.5) %FS 30% LVPWd 1.1 (0.6-1.2) Ao Diam 2.8 (2.0-3.7) 2 DIMENSIONAL ASSESSMENT: RIGHT ATRIUM: NORMAL LEFT ATRIUM: NORMAL RIGHT VENTRICLE: NORMAL LEFT VENTRICLE: NORMAL TRICUSPID VALVE: NORMAL MITRAL VALVE: NORMAL PULMONIC VALVE: NORMAL AORTIC VALVE: NORMAL PERICARDIAL EFFUSION: NONE AORTIC ROOT: NORMAL LEFT VENTRICULAR WALL MOTION: NORMAL EJECTION FRACTION. DOPPLER/COLOR FLOW: MILD TRICUSPID REGURGITATION. COMMENTS: TECHNICALLY DIFFICULT STUDY. MILD TRICUSPID REGURGITATION. NORMAL LEFT VENTRICULAR EJECTION FRACTION AND FUNCTION. DECREASED LEFT VENTRICULAR COMPLIANCE. TECHNOLOGIST: TOI CAZARES
[2018-06-12] MEDS: HYDRALAZINE HCL 20 MG/ML VIAL IV PRN (21:08)
[2018-06-13] MEDS: IPRATROPIUM BROM 0.5MG/2.5ML NEB SCH ×7 (00:10→23:05)
[2018-06-13] MEDS: ALBUTEROL 2.5 MG/3 ML NEB SOL NEB SCH ×7 (00:10→23:05)
[2018-06-13] MEDS: METHYLPREDNISOLONE 125 MG INJ IV SCH ×3 (01:34→11:42)
[2018-06-13] MEDS: ONDANSETRON 4 MG/2 ML VIAL IV PRN ×3 (03:04→18:02)
[2018-06-13] MEDS: BENZONATATE 100 MG CAP PO PRN (03:06)
[2018-06-13] MEDS: GUAIFENESIN/CODEINE 5ML UCUP PO PRN (03:37)
[2018-06-13] MEDS: HYDRALAZINE HCL 20 MG/ML VIAL IV PRN (05:21)
[2018-06-13 05:50] LABS: Absolute Lymphocytes (CBC) 0.5 K/uL (0.7-4.9); Absolute Monocytes 0.8 K/uL (0.1-1.3); Absolute Neutrophil 9.3 K/uL (1.8-8.0); Basophils % 0.1 % (0-1.3); Hematocrit 44.5 % (36.0-45.0); Lymphocytes % 4.9 % (15.3-44.8); MPV 9.8 fL (7.6-11.3); Monocytes % 7.3 % (3.3-12.3); RBC Red Blood Cell Count 4.57 M/uL (3.86-4.86)
[2018-06-13 06:11] LABS: ALT/SGPT 93 U/L (12-78); AST/SGOT 66 U/L (15-37); Albumin 3.6 g/dL (3.4-5.0); Alkaline Phosphatase 82 U/L (45-117); BUN Blood Urea Nitrogen 17 mg/dL (7-18); Bicarbonate 30 mmol/L (21-32); Bilirubin Total 0.7 mg/dL (0.2-1.0); Glucose Level 128 mg/dL (74-106); Potassium 4.1 mmol/L (3.5-5.1); Protein, Total 6.8 g/dL (6.4-8.2); Sodium Level 134 mmol/L (136-145)
[2018-06-13] MEDS: PANTOPRAZOLE 40MG TABLET PO SCH (06:30)
[2018-06-13] MEDS: LEVOTHYROXINE SOD 0.1 MG TAB PO SCH (06:30)
--- NOTE | 2018-06-13 08:49 | RAD REPORT ---
EXAM DESCRIPTION: RAD - Abdomen 1 View (KUB) - 06/12/2018 11:14 pm CLINICAL HISTORY: Abdomen pain. FINDINGS: Dilated loop of bowel within the right lower quadrant probably represents cecum. It measur es 14 centimeters. In addition several loops of small bowel within the left abdomen are mildly dilated. For this may rep resent an ileus or small-bowel obstruction. Follow-up is recommended
[2018-06-13] MEDS: LOSARTAN POTASSIUM 50 MG TABLET PO SCH (09:00)
[2018-06-13] MEDS: ATORVASTATIN 10 MG TAB PO SCH (09:00)
[2018-06-13] MEDS: ATENOLOL 50 MG TAB PO SCH (09:00)
[2018-06-13] MEDS: AMLODIPINE 5 MG TAB PO SCH (09:00)
[2018-06-13] MEDS: ENOXAPARIN 40 MG/0.4 ML SQ SCH (09:00)
--- NOTE | 2018-06-13 09:03 | RAD REPORT ---
EXAM DESCRIPTION: Maddie Awad And Soheila (2 Views)06/13/2018 8:31 am CLINICAL HISTORY: Cough COMPARISON: June 11 FINDINGS: Nasogastric tube has been inserted with its tip 5 centimeters into the stomach. Mild bibasilar interstitial lung opacities are unchanged. The heart is normal size. Several loops of small bowel are mildly dilated within left upper quadrant which may represent an annie namic ileus or obstruction. Follow-up is recommended
[2018-06-13] MEDS ORDERED: MORPHINE 4 MG/ML SYR IV ONE (10:39)
[2018-06-13] MEDS ORDERED: SODIUM CHLORIDE 0.9% 10ML INJ IV PRN (10:39)
[2018-06-13] MEDS: D5 0.45 NS 1,000 ML IV SCH (10:45)
[2018-06-13] MEDS: FUROSEMIDE 40 MG/4 ML VIAL IV SCH (10:49)
[2018-06-13] MEDS: PANTOPRAZOLE 40 MG INJ IVP SCH (11:41)
[2018-06-13] MEDS: Levofloxacin500mg IV 500 MG/100 ML BAG IV SCH (12:35)
[2018-06-13] MEDS: MORPHINE 4 MG/ML SYR IV PRN (18:02)
[2018-06-13] MEDS: METHYLPREDNISOLONE 40 MG INJ IV SCH (20:47)
--- NOTE | 2018-06-13 20:55 | PN ---
Date of Progress Note: 06/13/2018 Subjective: The patient seen and examined. Chart reviewed and case discussed with RN. The patient still having pain in her abdomen causing some gas. NG tube was placed last night due to obstruction. The patient having some dark return approximately 200 mL. Objective: Vital Signs: Temperature 98, heart rate 94, blood pressure 131/79, respirations 18, O2 9 7% on 2L via nasal cannula. General: Awake, alert, and oriented x3. Some mild distress. Ill-appearing female, obese. CV: S1, S2. No murmurs. Respiratory: Moving air well at the apices. Diminished breath sounds at the bases. No wheezing or stridor. Gastrointestinal: Abdomen is soft. Mild tenderness to palpation. Hypoactive bowel sounds. Distend ed. Extremities: No clubbing, cyanosis, or edema. Neuro: Nonfocal. Code Status: Full. Laboratory Data: Sodium 134, potassium 4.1, chloride 96, CO2 30, BUN 17, creatinine 0.65, glucose 12 8, calcium 10.5, AST 66, ALT 93. WBC 10.6, hemoglobin and hematocrit 15.4 and 44.5, platelets 250. Gastric occult blood is positive. Blood culture showed no growth to date. Sputum culture normal dereje ntity of respiratory jose. Chest x-ray, personally reviewed, shows mild bibasilar interstitial lung opacities are unchanged. Several loops of small bowel mildly dilated within the left upper quadrant , which may represent adynamic ileus or obstruction. Echocardiogram with EF 59%, tricuspid regurg, d ecreased left ventricular compliance. Assessment: 1.Respiratory failure secondary to pneumonia, possible volume overload. Continue antibiotics with L evaquin. Continue steroids and DuoNebs. Echocardiogram shows normal ejection fraction. 2.Right lower lobe pneumonia. Chest x-ray shows no significant change. We will continue antibiotic s. Culture is negative to date. 3.Essential hypertension, stable. 4.Hypothyroidism. Continue Synthroid. 5.Ileus versus small-bowel obstruction. We will continue the nasogastric tube, we will clamp for no w. 6.Gastric occult blood positive. Fortunately, Gastroenterology is not available. The patient does see Dr. Alexander as an outpatient. We will hold Lovenox for now. Monitor hemoglobin and hematocrit. We will switch to IV Protonix. Plan: Obtain magnesium level in a.m. Repeat acute abdominal series in a.m. If improving, we will d iscontinue NG tube. The patient is passing gas. SA/MODL Voice ID: [id number] Report ID: [id number]
[2018-06-14] MEDS: MORPHINE 4 MG/ML SYR IV PRN ×4 (01:28→21:33)
[2018-06-14] MEDS: D5 0.45 NS 1,000 ML IV SCH ×3 (01:29→21:33)
[2018-06-14] MEDS: ONDANSETRON 4 MG/2 ML VIAL IV PRN ×4 (01:36→21:33)
[2018-06-14] MEDS: IPRATROPIUM BROM 0.5MG/2.5ML NEB SCH ×6 (03:50→23:35)
[2018-06-14] MEDS: ALBUTEROL 2.5 MG/3 ML NEB SOL NEB SCH ×6 (03:50→23:35)
[2018-06-14] MEDS: LEVOTHYROXINE SOD 0.1 MG TAB PO SCH (06:30)
[2018-06-14] MEDS: PANTOPRAZOLE 40 MG INJ IVP SCH ×2 (09:00→14:04)
[2018-06-14] MEDS: ATORVASTATIN 10 MG TAB PO SCH ×2 (09:00→12:42)
[2018-06-14] MEDS: LOSARTAN POTASSIUM 50 MG TABLET PO SCH ×2 (09:00→12:42)
[2018-06-14] MEDS: METHYLPREDNISOLONE 40 MG INJ IV SCH ×2 (09:00→14:03)
[2018-06-14] MEDS: ATENOLOL 50 MG TAB PO SCH ×2 (09:00→12:41)
[2018-06-14] MEDS: FUROSEMIDE 40 MG/4 ML VIAL IV SCH ×2 (09:00→14:03)
[2018-06-14] MEDS: AMLODIPINE 5 MG TAB PO SCH ×2 (09:00→12:43)
--- NOTE | 2018-06-14 10:44 | RAD REPORT ---
EXAM DESCRIPTION: RAD - Abdomen Acute Series - 06/14/2018 10:37 am CLINICAL HISTORY: Abdominal pain FINDINGS: A nasogastric tube has its tip at the GE junction. Mildly dilated large and small bowel is present which may represent an adynamic ileus. Free air is not seen beneath the diaphragm
[2018-06-14] MEDS: Levofloxacin500mg IV 500 MG/100 ML BAG IV SCH ×2 (12:57→14:04)
--- NOTE | 2018-06-14 14:10 | P.CNS ---
Date of Consult: 06/14/18 PC: I was asked to see this patient in regards to a possible bowel obstruction versus ileus. HPC: Patient has been in the hospital with a pneumonia. Has been treated over the last for 40 hr. The making distended, she denied having bowel movements. Nasogastric tube was placed. PMH: COPD PSHx: Previous hysterectomy, cholecystectomy SOC: The allergies SYS REVIEW: States he has been was not have any abdominal pain prior to her admission, last p.m. a about 48 hr ago passed some gas this morning O/E awake alert vital signs stable HEENT: Nasogastric tube Chest: Chest movement equal bilateral ABD: Soft, minimal tenderness, mildly tympanic LOCO: Intact DATA: Abdominal films nonspecific for any acute of straight IMPRESSION: Patient appears to have a ileus PLAN: Mineral oil via nasogastric tube, she does not require surgical intervention at the moment. Anticipate that this should resolve in the next 24- 48 hr.
[2018-06-14] MEDS ORDERED: MINERAL OIL 30 ML UCUP GT ONE (14:22)
--- NOTE | 2018-06-14 20:10 | PN ---
Date of Progress Note: 06/14/2018 Subjective: The patient is seen and examined. Chart reviewed and case discussed with RN and Dr. Mag dickerson. The patient states that she is passing some gas. Abdominal pain has resolved. No further ladarius sea. Medications: List reviewed. Physical Examination: Vital Signs: Temperature 98, heart rate 92, blood pressure 131/76, respirations 16, and O2 of 95% on 2 L via nasal cannula. General: Awake, alert, and oriented x3. Some mild distress. Elderly female, ill appearing, obese. CV: S1 and S2. Regular rate and rhythm. Peripheral pulses present. No murmurs. Respiratory: Moving air well at the apices. Diminished breath sounds at the bases. No crackles or wheezing. Gastrointestinal: Abdomen is soft. Mild tenderness to palpation. No guarding or rigidity. Bowel s ounds hypoactive. Extremities: No clubbing, cyanosis, or edema. Neurologic: Nonfocal. Laboratory Data: Labs pending. Cultures, blood cultures, no growth to date. Gastric occult blood i s positive. Sputum cultures, no growth. Acute abdominal series, personally reviewed, shows mildly dilated large and small bowel present, whic h may represent adynamic ileus. Assessment And Plan: A 68-year-old female with, 1.Acute respiratory failure secondary to pneumonia, possible volume overload. Continue Levaquin, st eroids, and DuoNeb. Echocardiogram shows normal ejection fraction. We will give trial of Lasix. 2.Right lower lobe pneumonia. Chest x-ray did not show any acute significant change. Cultures are negative to date. 3.Essential hypertension, stable. 4.Hypothyroidism. Continue Synthroid. 5.Ileus. We will monitor electrolytes. Appreciate Dr. Vivar's input. No surgical intervention a t this time. Continue NG tube with clamping. Start on ice chips. 6.Gastrointestinal bleed. Gastric occult blood is positive. Unfortunately, no GI is available. Th e patient does see Dr. Alexander as an outpatient. The patient will need outpatient EGD. We will monit or H and H. Lovenox on hold. However, since no further bleeding, we will resume Lovenox for deep ve nous thrombosis prophylaxis. The patient is not very mobile. We will increase dose of Lasix. We wi ll wean off steroids. SA/MODL Voice ID: [id number] Report ID: [id number]
[2018-06-14] MEDS: predniSONE 20 MG TAB PO SCH (21:33)
[2018-06-15] MEDS: IPRATROPIUM BROM 0.5MG/2.5ML NEB SCH ×6 (04:00→23:36)
[2018-06-15] MEDS: ALBUTEROL 2.5 MG/3 ML NEB SOL NEB SCH ×6 (04:00→23:36)
[2018-06-15 05:23] LABS: Absolute Lymphocytes (CBC) 0.5 K/uL (0.7-4.9); Absolute Monocytes 0.8 K/uL (0.1-1.3); Absolute Neutrophil 7.1 K/uL (1.8-8.0); Eosinophils % 0.1 % (0-4.4); Hematocrit 40.5 % (36.0-45.0); Lymphocytes % 5.9 % (15.3-44.8); MPV 9.4 fL (7.6-11.3); Monocytes % 9.8 % (3.3-12.3)
[2018-06-15] MEDS: LEVOTHYROXINE SOD 0.1 MG TAB PO SCH (05:28)
[2018-06-15] MEDS: MORPHINE 4 MG/ML SYR IV PRN (05:28)
[2018-06-15] MEDS: ONDANSETRON 4 MG/2 ML VIAL IV PRN (05:28)
[2018-06-15 05:50] LABS: Magnesium 2.2 mg/dL (1.8-2.4); Phosphorus 3.3 mg/dL (2.5-4.9); Potassium 4.3 mmol/L (3.5-5.1)
[2018-06-15] MEDS: LOSARTAN POTASSIUM 50 MG TABLET PO SCH (09:00)
[2018-06-15] MEDS: PANTOPRAZOLE 40 MG INJ IVP SCH (10:03)
[2018-06-15] MEDS: FUROSEMIDE 40 MG/4 ML VIAL IV SCH (10:03)
[2018-06-15] MEDS: ATENOLOL 50 MG TAB PO SCH (10:04)
[2018-06-15] MEDS: ATORVASTATIN 10 MG TAB PO SCH (10:04)
[2018-06-15] MEDS: predniSONE 20 MG TAB PO SCH ×2 (10:04→21:21)
[2018-06-15] MEDS: AMLODIPINE 5 MG TAB PO SCH (10:05)
[2018-06-15] MEDS: ENOXAPARIN 40 MG/0.4 ML SQ SCH (10:05)
[2018-06-15] MEDS: D5 0.45 NS 1,000 ML IV SCH (11:16)
[2018-06-15] MEDS: ACETAMINOPHEN 500 MG TAB PO PRN ×2 (12:24→21:21)
[2018-06-15] MEDS: Levofloxacin500mg IV 500 MG/100 ML BAG IV SCH (18:25)
--- NOTE | 2018-06-15 20:23 | PN ---
Date of Progress Note: 06/15/2018 History: The patient seen and examined. Chart reviewed and case discussed with RN and Dr. Vivar. The patient states she is passing flatus. Pain is improved significantly. Tolerating ice chips. Medications: List reviewed. Physical Examination: Vital Signs: Temperature 98.1, heart rate 86, blood pressure 116/67, respirations 18, O2 92% on 2 L via nasal cannula. General: Awake, alert, oriented x3, in some mild distress, ill-appearing elderly female. Obese. CV: S1, S2. Regular rate and rhythm. Peripheral pulses present. Respiratory: Moving air well except at the bases. Some crackles heard. Gastrointestinal: Abdomen is soft, nontender, nondistended. Positive bowel sounds. Extremities: No clubbing, cyanosis, or edema. Neurologic: Nonfocal. Laboratory Data: Sodium 135, potassium 4.3, chloride 95, CO2 34, BUN 21, creatinine 0.79, glucose 115, calcium 8.6. WBC 8.4, H and H 13.9 and 40.5, platelets 210, neutrophils 84%. Blood cultures no growth to date. Assessment And Plan: A 68-year-old female with: 1. Acute respiratory failure secondary to pneumonia and volume overload, improving, still on 2 L of oxygen via nasal cannula. We will wean off as tolerated. 2. Right lower lobe pneumonia, clinically improved. However, chest x-ray did not show any significant change. Cultures negative to date. Continue antibiotics. 3. Essential hypertension, stable. 4. Ileus, improving. The patient passing gas. We will discontinue NG tube and start on clear liquids. 5. Hypothyroidism. Continue Synthroid. 6. Gastrointestinal bleed. No further bleeding. The patient had gastric occult blood that was positive from the NG tube. The patient will need to follow up with Dr. Alexander as an outpatient and have EGD done. Her hemoglobin and hematocrit have been stable with no further bleeding. 7. Gastrointestinal and deep venous thrombosis prophylaxes. Lovenox resumed, as there is no further bleeding. Hemoglobin and hematocrit are stable. The patient is not very mobile. 8. COPD, chronic bronchitis Plan: Discontinue IV fluids. Discontinue NG tube. Start on clear liquids and advance as tolerated. Continue Lasix. Likely discharge in the next 24 hours depending on clinical response. SA/MODL Voice ID: [id number] Report ID: [id number] MTDD
[2018-06-16] MEDS: MORPHINE 4 MG/ML SYR IV PRN (00:24)
[2018-06-16] MEDS: ONDANSETRON 4 MG/2 ML VIAL IV PRN ×2 (00:24→08:47)
[2018-06-16] MEDS: ALBUTEROL 2.5 MG/3 ML NEB SOL NEB SCH ×5 (03:50→20:20)
[2018-06-16] MEDS: IPRATROPIUM BROM 0.5MG/2.5ML NEB SCH ×5 (03:50→20:20)
[2018-06-16 05:20] LABS: Absolute Lymphocytes (CBC) 0.4 K/uL (0.7-4.9); Absolute Monocytes 0.5 K/uL (0.1-1.3); Absolute Neutrophil 5.2 K/uL (1.8-8.0); Basophils % 0.1 % (0-1.3); Hematocrit 40.8 % (36.0-45.0); Lymphocytes % 6.8 % (15.3-44.8); MPV 9.6 fL (7.6-11.3); Monocytes % 7.4 % (3.3-12.3)
[2018-06-16] MEDS: LEVOTHYROXINE SOD 0.1 MG TAB PO SCH (05:48)
[2018-06-16] MEDS: ENOXAPARIN 40 MG/0.4 ML SQ SCH (08:48)
[2018-06-16] MEDS: FUROSEMIDE 40 MG/4 ML VIAL IV SCH (08:48)
[2018-06-16] MEDS: PANTOPRAZOLE 40 MG INJ IVP SCH (08:49)
[2018-06-16] MEDS: AMLODIPINE 5 MG TAB PO SCH (08:50)
[2018-06-16] MEDS: predniSONE 20 MG TAB PO SCH ×2 (08:50→20:38)
[2018-06-16] MEDS: ATENOLOL 50 MG TAB PO SCH (08:51)
[2018-06-16] MEDS: GUAIFENESIN/CODEINE 5ML UCUP PO PRN ×3 (08:51→20:38)
[2018-06-16] MEDS: LOSARTAN POTASSIUM 50 MG TABLET PO SCH (08:51)
[2018-06-16] MEDS: ATORVASTATIN 10 MG TAB PO SCH (09:00)
[2018-06-16] MEDS ORDERED: CEPACOL LOZENGES PO PRN (09:32)
[2018-06-16] MEDS ORDERED: HOME MED 1 EA UNK (Budesonide/Formoterol Fumarate [Symbicort 160-4.5 Mcg Inhaler] 1 PUFF) IH SCH (10:14)
[2018-06-16] MEDS: BENZONATATE 100 MG CAP PO PRN (11:16)
[2018-06-16] MEDS: Levofloxacin500mg IV 500 MG/100 ML BAG IV SCH (13:49)
[2018-06-16] MEDS ORDERED: ONDANSETRON 4 MG (ODT) TAB PO ONE ×2 (15:22→16:00)
[2018-06-16 16:56] VITALS: BP 107/55; TEMP 98.2
[2018-06-16 21:31] VITALS: O2SAT 95
--- NOTE | 2018-06-17 12:29 | DS ---
Date of Discharge: 06/16/2018 Admitting Diagnoses: 1.Acute respiratory distress with hypoxia. 2.Chronic obstructive pulmonary disease exacerbation. 3.Right lower lobe pneumonia. 4.Hypertension. 5.Hypothyroidism. 6.Chronic obstructive pulmonary disease with chronic bronchitis. Discharge Diagnoses: 1.Acute respiratory failure with hypoxia secondary to pneumonia, volume overload, and chronic obstru ctive pulmonary disease. 2.Right lower lobe pneumonia, improving. 3.Essential hypertension stable. 4.Ileus, resolved. 5.Hypothyroidism, Synthroid. 6.Chronic obstructive pulmonary disease, chronic bronchitis. 7.Gastrointestinal bleed. H and H stable. 8.Obesity, BMI 33. Hospital Course: The patient is a 68-year-old female, past medical history of hypertension, COPD, gl aucoma, hypothyroidism, who comes in with flu-like symptoms and respiratory distress. The patient wa s found to have pneumonia. She was started on Levaquin, Solu-Medrol, and breathing treatments. Cult ures were obtained, which were negative. Influenza screen was also negative. Sputum cultures showed no abnormal growth. The patient did require supplemental oxygen and was difficult to wean. Her WBC count remained normal. The patient was not septic appearing. Her lactate and procalcitonin were ne gative. The patient's repeat chest x-ray did show some improvement. She was also felt to have some mild fluid overload. Her BNP was elevated at 594. Echocardiogram was done, which showed EF of 59%, decreased left ventricular compliance. The patient was started on diuresis and had some improvement in her symptoms. The patient did develop ileus, which is likely due to adhesions from her previous a bdominal surgeries. Dr. Vivar with General Surgery was consulted. He did not recommend any surgic al intervention. The patient was encouraged to ambulate. Her electrolytes were monitored and ileus resolved. She was able to pass gas. The patient was then able to tolerate a GI soft diet as well fr om the NG tube aspirate gastric occult blood was testing was positive as she had some coffee-ground a spirate. The patient did not have any drop in her hemoglobin and as such, she will need to follow up with her GI doctor as an outpatient. GI was on available during this hospitalization. The patient normally follows with Dr. Alexander. The patient will likely need outpatient EGD to evaluate for ulcera tions or other causes of bleeding. The patient was doing well. She was difficult to wean off oxygen and her room air sats were as low as 82% to 86% on room air without oxygen. Therefore, the patient will be set up with home O2. The patient was able to ambulate. Her weakness improved. She was able to tolerate her diet. Her symptoms had also improved. The patient was then cleared for discharge. Followup: Follow up with primary care physician in 2 to 3 days. Follow up with GI, Dr. Alexander in 2 weeks. Return to ER for worsening condition. Diet: Heart healthy. Activity: As tolerated. No strenuous activity. Medications: As per medication reconciliation list, finish off course of Levaquin for a total of 7 d ays. The patient already received 5 days worth of Levaquin, will be on a short steroid taper, and he r blood pressure medications were also adjusted. Condition: Stable. Physical Examination: General: Awake, alert, oriented x3. No acute distress. CV: S1, S2. No murmurs. Respiratory: Somewhat diminished breath sounds and minimal wheezing. Gastrointestinal: Abdomen is soft, nontender, nondistended. Positive bowel sounds. Extremities: No clubbing, cyanosis, or edema. Neuro: Nonfocal. Consultants: Dr. Vivar with General Surgery. Procedure: None. Total time spent discharging the patient was 49 minutes. /SONJA Voice ID: [id number] Report ID: [id number]
== END 2018-06-16 20:55 | disposition home or self-care (01) | DRG 193 ==
LOC: ER 07:59 → ERHOLD 10:26 → 4TH 12:44
PROVIDERS: ADMIT Family Medicine; ATTEND Family Medicine
DX: J18.9 Pneumonia, unspecified organism (principal); J96.01 Acute respiratory failure with hypoxia; K56.7 Ileus, unspecified; J44.0 Chronic obstructive pulmonary disease with (acute) lower respiratory infection; K92.2 Gastrointestinal hemorrhage, unspecified; R09.02 Hypoxemia; I10 Essential (primary) hypertension; E03.9 Hypothyroidism, unspecified
CPT/HCPCS: 36415; 71045; 71046; 74018; 74022; 80048; 80053; 80076; 81003; 81015; 82271; 82550; 82553; 83605; 83690; 83735; 83880; 83986; 84100; 84145; 84484; 85025; 85610; 85730; 87040; 87070; 87205; 87804; 93005; 93306; 94640; 94760; 96365; 96366; 96375; 97116; 97163; 97530; 99285; C9113; J0360; J1650; J1940; J2405; J2920; J2930; J7030; J7512

== ENCOUNTER 2022-07-26 07:03 | Day surgery (SDC) | payer OTHER ==
[2022-07-26] MEDS ORDERED: Ringers Lactate 1,000 ML IV ONE (07:40)
[2022-07-26] MEDS ORDERED: propofoL 200 MG/20 ML VIAL IV ONE ×2 (09:19→09:50)
[2022-07-26] MEDS ORDERED: LIDOCAINE 1% MPF 5 ML VIAL ONE (09:19)
[2022-07-26 12:53] VITALS: TEMP 97.4; O2SAT 93
[2022-07-26 12:55] VITALS: BP 116/67
== END 2022-07-26 10:08 | disposition home or self-care (01) ==
LOC: OR 07:03
PROVIDERS: ATTEND Internal Medicine Gastroenterology
PROC: 0DB68ZX Excision of Stomach, Via Natural or Artificial Opening Endoscopic, Diagnostic (ICD-10-PCS; principal; 2022-07-26 08:45)
DX: K30 Functional dyspepsia (principal); R14.0 Abdominal distension (gaseous); R14.2 Eructation; K21.9 Gastro-esophageal reflux disease without esophagitis; R12 Heartburn; K21.00 Gastro-esophageal reflux disease with esophagitis, without bleeding; K44.9 Diaphragmatic hernia without obstruction or gangrene; K29.70 Gastritis, unspecified, without bleeding
CPT/HCPCS: 88312; 88305; 43239; J2704 ×2; J2001; J7120